=== PATIENT | male | born 1970 | race African-American/Black ===

== ENCOUNTER 2017-06-07 15:47 | Inpatient (IN) | payer BC ==
[~2017-06-07] VITALS: Ht 170.2 cm; Wt 120.3 kg
[2017-06-07 17:20] LABS: BASOPHILS % (AUTO) 0.5 % (0.0-5.0); EOSINOPHILS % (AUTO) 0.2 % (0.0-8.0); HEMATOCRIT 47.2 % (42-54); LYMPHOCYTES % (AUTO) 12.5 % (21.0-51.0); MEAN CORPUSCULAR HGB CONC 33.6 g/dL (32.0-36.0); MEAN CORPUSCULAR VOLUME 89.2 fL (79-99); MONOCYTES % (AUTO) 2.1 % (3.0-13.0); NEUTROPHILS % (AUTO) 84.7 % (40.0-77.0); PLATELET COUNT (AUTO) 174 K/uL (130-400); RED BLOOD CELL COUNT(AUTO) 5.29 MIL/uL (4.50-6.20); RED CELL DISTRIBUTION WIDTH 13.4 % (11.0-15.5); WHITE BLOOD COUNT (AUTO) 6.6 K/uL (4.8-10.8)
[2017-06-07 17:27] LABS: CREATININE 1.2 mg/dL (0.5-1.5)
[2017-06-07 17:32] LABS: ALBUMIN 3.7 g/dL (3.5-5.0); BILIRUBIN,TOTAL 0.7 mg/dL (0.2-1.0)
[2017-06-07] MEDS ORDERED: SODIUM CHLORIDE 0.9% 1000ML 1,000 ML IV ONE (17:57)
[2017-06-07] MEDS ORDERED: ONDANSETRON HCL MDV 20ML 2 MG/ML VIAL ONE (17:57)
[2017-06-07] MEDS ORDERED: DIAZEPAM 5 MG TABLET ONE (17:57)
[2017-06-07 18:10] LABS: PARTIAL THROMBOPLASTIN TIME 24.5 SEC (26.3-35.5); PROTHROMBIN TIME 10.5 SEC (9.6-11.6)
[2017-06-07 18:24] LABS: CREATINE KINASE MB < 0.5 ng/mL (0.5-3.6); CREATINE KINASE, TOTAL 95 U/L (21-232)
[2017-06-07] MEDS ORDERED: ASPIRIN 325 MG TABLET ONE (20:03)
[2017-06-07] MEDS ORDERED: FAMOTIDINE 20MG TAB 20 MG TAB ONE (20:03)
[2017-06-07] MEDS ORDERED: MECLIZINE HCL 25 MG TABLET ONE (20:18)
[2017-06-07] MEDS ORDERED: HYDRALAZINE HCL 20 MG/ML VIAL ONE (20:18)
[2017-06-07] MEDS ORDERED: KETOROLAC TROMETHAMINE 30MG/ML ONE (20:18)
[2017-06-07] MEDS ORDERED: ACETAMINOPHEN 325 MG TAB ONE (20:19)
[2017-06-07] MEDS ORDERED: SODIUM CHLORIDE 0.9% 1000ML 1,000 ML IV SCH (22:37)
[2017-06-07] MEDS ORDERED: ONDANSETRON HCL 4 MG/2 ML VIAL IV PRN (22:45)
[2017-06-07] MEDS ORDERED: ACETAMINOPHEN-CODEINE 300/30MG TAB PO PRN (22:45)
[2017-06-07] MEDS ORDERED: ACETAMINOPHEN 325 MG TAB PO PRN (22:45)
[2017-06-08] VITALS (10 sets, daily range): BP systolic 143–173; BP diastolic 53–84
[2017-06-08] MEDS ORDERED: SODIUM CHLORIDE 0.9% 1000ML 1,000 ML IV ONE (00:33)
[2017-06-08] MEDS ORDERED: ACETAMINOPHEN-CODEINE 300/30MG TAB ONE (00:34)
[2017-06-08] MEDS ORDERED: KETOROLAC TROMETHAMINE 30MG/ML ONE ×2 (03:02→08:54)
[2017-06-08] MEDS ORDERED: ASPIRIN 325 MG TABLET ONE (08:10)
[2017-06-08] MEDS ORDERED: FAMOTIDINE 20MG TAB 20 MG TAB ONE (08:54)
[2017-06-08] MEDS: FAMOTIDINE 20MG TAB 20 MG TAB PO SCH ×2 (09:00→20:05)
[2017-06-08] MEDS ORDERED: ASPIRIN 325 MG TABLET PO SCH (09:00)
[2017-06-08] MEDS ORDERED: CLOPIDOGREL BISULFATE 75 MG TAB ONE (11:55)
[2017-06-08] MEDS ORDERED: BUTALB/ACETAMINOPHEN/CAFFEINE 1 EACH TABLET PO ONE (12:08)
[2017-06-08] MEDS ORDERED: DEXTROSE 5 % AND 0.9 % NACL 1,000 ML IV SCH (13:45)
[2017-06-08] MEDS: KETOROLAC TROMETHAMINE 30MG/ML IV PRN ×2 (14:34→20:50)
[2017-06-08 15:50] LABS: AMPHET/METH SCREEN,URINE NEGATIVE (NEGATIVE); BARBITURATE SCREEN, URINE POSITIVE (NEGATIVE); BENZODIAZEPINES SCREEN,URINE POSITIVE (NEGATIVE); CANNABINOID SCREEN,URINE NEGATIVE (NEGATIVE); COCAINE SCREEN,URINE NEGATIVE (NEGATIVE); OPIATE SCREEN,URINE POSITIVE (NEGATIVE); PHENCYCLIDINE SCREEN,URINE NEGATIVE (NEGATIVE)
[2017-06-08] MEDS ORDERED: ONDANSETRON HCL MDV 20ML 2 MG/ML VIAL IVP ONE (19:14)
[2017-06-08] MEDS: MORPHINE SULFATE 2 MG/ML 1ML SYG IVP PRN (19:21)
[2017-06-08] MEDS: ONDANSETRON HCL MDV 20ML 2 MG/ML VIAL IVP PRN (19:21)
[2017-06-08] MEDS: ACETAMINOPHEN 325 MG TAB PO PRN (20:09)
[2017-06-08] MEDS ORDERED: MECLIZINE HCL 25 MG TABLET PO SCH (21:00)
[2017-06-08] MEDS: HYDRALAZINE HCL 20 MG/ML VIAL IV PRN (22:02)
[2017-06-08] MEDS: BUTALB/ACETAMINOPHEN/CAFFEINE 1 EACH TABLET PO PRN (23:01)
[2017-06-08] MEDS: MECLIZINE HCL 25 MG TABLET PO PRN (23:01)
[2017-06-09] VITALS (25 sets, daily range): BP systolic 132–181; BP diastolic 64–105
[2017-06-09] MEDS: MORPHINE SULFATE 2 MG/ML 1ML SYG IVP PRN ×3 (00:03→19:27)
[2017-06-09] MEDS: KETOROLAC TROMETHAMINE 30MG/ML IV PRN ×3 (02:54→18:37)
[2017-06-09] MEDS: HYDRALAZINE HCL 20 MG/ML VIAL IV PRN ×3 (03:06→18:44)
[2017-06-09 03:57] LABS: HEMATOCRIT 48.6 % (42-54); MEAN CORPUSCULAR HEMOGLOBIN 30.1 pg (27.0-33.0); MEAN CORPUSCULAR VOLUME 88.5 fL (79-99); NUCLEATED RED BLOOD CELLS 0.1 % (0.0-0.19); PLATELET COUNT (AUTO) 205 K/uL (130-400); RED BLOOD CELL COUNT(AUTO) 5.49 MIL/uL (4.50-6.20); RED CELL DISTRIBUTION WIDTH 13.4 % (11.0-15.5); WHITE BLOOD COUNT (AUTO) 8.3 K/uL (4.8-10.8)
[2017-06-09] MEDS: HYDROCODONE/ACETAMINOPHEN 5/325 MG TAB PO PRN ×2 (04:01→20:58)
[2017-06-09 04:12] LABS: CREATININE 1.1 mg/dL (0.5-1.5); POTASSIUM 3.3 mmol/L (3.5-5.1)
[2017-06-09] MEDS: ONDANSETRON HCL MDV 20ML 2 MG/ML VIAL IVP PRN (05:34)
[2017-06-09] MEDS: BUTALB/ACETAMINOPHEN/CAFFEINE 1 EACH TABLET PO PRN ×2 (06:26→20:35)
[2017-06-09] MEDS: MECLIZINE HCL 25 MG TABLET PO PRN ×2 (06:26→20:35)
[2017-06-09] MEDS: CLOPIDOGREL BISULFATE 75 MG TAB PO SCH (10:11)
[2017-06-09] MEDS: PANTOPRAZOLE SODIUM 40 MG TABLET.DR PO SCH (10:11)
[2017-06-09] MEDS: ASPIRIN 81MG TAB.CHEW PO SCH (10:11)
[2017-06-10] VITALS (18 sets, daily range): BP systolic 130–200; BP diastolic 65–118
[2017-06-10] MEDS: KETOROLAC TROMETHAMINE 30MG/ML IV PRN ×3 (00:18→14:15)
[2017-06-10] MEDS: HYDRALAZINE HCL 20 MG/ML VIAL IV PRN ×3 (03:11→20:26)
[2017-06-10] MEDS: BUTALB/ACETAMINOPHEN/CAFFEINE 1 EACH TABLET PO PRN (04:12)
[2017-06-10] MEDS: HYDROCODONE/ACETAMINOPHEN 5/325 MG TAB PO PRN ×2 (04:12→11:10)
[2017-06-10] MEDS: CLOPIDOGREL BISULFATE 75 MG TAB PO SCH (09:11)
[2017-06-10] MEDS: ASPIRIN 81MG TAB.CHEW PO SCH (09:11)
[2017-06-10] MEDS: PANTOPRAZOLE SODIUM 40 MG TABLET.DR PO SCH (09:11)
[2017-06-10] MEDS ORDERED: MECLIZINE HCL 25 MG TABLET PO PRN (14:00)
[2017-06-10] MEDS: MECLIZINE HCL 25 MG TABLET PO PRN (14:16)
[2017-06-10] MEDS: MORPHINE SULFATE 2 MG/ML 1ML SYG IVP PRN (14:44)
[2017-06-10] MEDS: MECLIZINE HCL 25 MG TABLET PO SCH ×2 (15:00→22:40)
[2017-06-10] MEDS ORDERED: LOSARTAN 50 MG TABLET PO SCH (15:00)
[2017-06-10] MEDS ORDERED: LIDOCAINE HCL-MPF 1% 2ML VIAL IVP PRN (15:00)
[2017-06-10] MEDS ORDERED: POTASSIUM CHLORIDE 10% ELIXIR 20 MEQ/15 ML UDCUP PO PRN (15:00)
[2017-06-10] MEDS ORDERED: POTASSIUM CHLORIDE 20MEQ/100ML 100 ML IV PRN (15:00)
[2017-06-10] MEDS: POTASSIUM CHLORIDE 20 MEQ ERTAB PO PRN ×2 (15:08→18:46)
[2017-06-10 15:31] LABS: CREATININE 1.1 mg/dL (0.5-1.5); POTASSIUM 3.4 mmol/L (3.5-5.1)
[2017-06-11 03:00] VITALS: BP 160/93
[2017-06-11] MEDS: HYDRALAZINE HCL 20 MG/ML VIAL IV PRN (03:06)
[2017-06-11] MEDS: ACETAMINOPHEN 325 MG TAB PO PRN (03:09)
[2017-06-11] MEDS: MORPHINE SULFATE 2 MG/ML 1ML SYG IVP PRN (03:50)
[2017-06-11 04:03] LABS: HEMATOCRIT 49.6 % (42-54); MEAN CORPUSCULAR HEMOGLOBIN 30.4 pg (27.0-33.0); MEAN CORPUSCULAR HGB CONC 34.5 g/dL (32.0-36.0); NUCLEATED RED BLOOD CELLS 0.1 % (0.0-0.19); PLATELET COUNT (AUTO) 192 K/uL (130-400); RED BLOOD CELL COUNT(AUTO) 5.63 MIL/uL (4.50-6.20); RED CELL DISTRIBUTION WIDTH 13.2 % (11.0-15.5); WHITE BLOOD COUNT (AUTO) 8.3 K/uL (4.8-10.8)
[2017-06-11 04:18] LABS: CREATININE 1.3 mg/dL (0.5-1.5); MAGNESIUM 1.8 mg/dL (1.80-2.40); PHOSPHORUS 3.7 mg/dL (2.5-4.9); POTASSIUM 3.5 mmol/L (3.5-5.1)
[2017-06-11 08:00] VITALS: BP 159/81
[2017-06-11] MEDS: MECLIZINE HCL 25 MG TABLET PO SCH ×2 (08:00→15:52)
[2017-06-11] MEDS ORDERED: DIAZEPAM 2 MG TAB PO PRN (08:15)
[2017-06-11] MEDS ORDERED: MORPHINE SULFATE 2 MG/ML 1ML SYG IVP PRN (08:15)
[2017-06-11] MEDS ORDERED: MAGNESIUM 2GM PREMIX 50ML 50 ML IV SCH (08:15)
[2017-06-11 11:45] VITALS: BP 139/81
[2017-06-11] MEDS: PANTOPRAZOLE SODIUM 40 MG TABLET.DR PO SCH (12:24)
[2017-06-11] MEDS: CLOPIDOGREL BISULFATE 75 MG TAB PO SCH (12:24)
[2017-06-11] MEDS: ASPIRIN 81MG TAB.CHEW PO SCH (12:24)
[2017-06-11] MEDS: ENOXAPARIN SODIUM 40 MG/0.4 ML SYRINGE SQ SCH (12:25)
[2017-06-11] MEDS: HYDROCHLOROTHIAZIDE 25 MG TABLET PO SCH (12:30)
[2017-06-11] MEDS: LOSARTAN 50 MG TABLET PO SCH (12:30)
[2017-06-11] MEDS: TRAMADOL HCL 50 MG TABLET PO PRN (16:00)
[2017-06-11 16:17] VITALS: BP 148/96
[2017-06-11 19:00] VITALS: BP 154/93
[2017-06-11 23:00] VITALS: BP 160/95
[2017-06-12] MEDS: LOSARTAN 50 MG TABLET PO SCH ×2 (00:01→08:44)
[2017-06-12 03:00] VITALS: BP 117/69
[2017-06-12 06:28] LABS: HEMATOCRIT 50.7 % (42-54); MEAN CORPUSCULAR HEMOGLOBIN 30.3 pg (27.0-33.0); MEAN CORPUSCULAR VOLUME 89.2 fL (79-99); NUCLEATED RED BLOOD CELLS 0.1 % (0.0-0.19); PLATELET COUNT (AUTO) 213 K/uL (130-400); RED BLOOD CELL COUNT(AUTO) 5.68 MIL/uL (4.50-6.20); WHITE BLOOD COUNT (AUTO) 7.2 K/uL (4.8-10.8)
[2017-06-12 06:37] LABS: CREATININE 1.2 mg/dL (0.5-1.5); MAGNESIUM 1.9 mg/dL (1.80-2.40); POTASSIUM 3.4 mmol/L (3.5-5.1)
[2017-06-12] MEDS: MECLIZINE HCL 25 MG TABLET PO SCH ×3 (07:14→15:15)
[2017-06-12 08:00] VITALS: BP 130/78
[2017-06-12] MEDS: ASPIRIN 81MG TAB.CHEW PO SCH (08:43)
[2017-06-12] MEDS: HYDROCHLOROTHIAZIDE 25 MG TABLET PO SCH (08:43)
[2017-06-12] MEDS: CLOPIDOGREL BISULFATE 75 MG TAB PO SCH (08:43)
[2017-06-12] MEDS: PANTOPRAZOLE SODIUM 40 MG TABLET.DR PO SCH (08:44)
[2017-06-12] MEDS: ENOXAPARIN SODIUM 40 MG/0.4 ML SYRINGE SQ SCH (08:46)
[2017-06-12] MEDS: TRAMADOL HCL 50 MG TABLET PO PRN (09:44)
[2017-06-12 11:00] VITALS: BP 125/85
[2017-06-12] MEDS: POTASSIUM CHLORIDE 20 MEQ ERTAB PO PRN (15:43)
[2017-06-12 16:00] VITALS: BP 129/78
== END 2017-06-12 18:32 | DRG 64 ==
LOC: EDH 15:47 → EDHIP 19:08 → OBSVTOIN 19:08 → 2CH 06-08 12:47 → 3CH 06-10 18:38
PROVIDERS: ADMIT Internal Medicine; ATTEND Internal Medicine
DX: I63.532 Cerebral infarction due to unspecified occlusion or stenosis of left posterior cerebral artery (principal); I77.74 Dissection of vertebral artery; Z68.41 Body mass index [BMI] 40.0-44.9, adult; I10 Essential (primary) hypertension; E66.01 Morbid (severe) obesity due to excess calories; G47.33 Obstructive sleep apnea (adult) (pediatric); I65.02 Occlusion and stenosis of left vertebral artery; Z79.02 Long term (current) use of antithrombotics/antiplatelets; Z79.82 Long term (current) use of aspirin; Z91.19 Patient's noncompliance with other medical treatment and regimen
CPT/HCPCS: 36415; 70450; 70547; 70551; 72125; 80048; 80053; 80305; 82550; 82553; 83735; 84100; 84484; 85025; 85027; 85610; 85730; 92610; 93005; 93306; 97039; J0360; J1650; J1885; J7030; J7042

== ENCOUNTER 2019-05-25 06:50 | Emergency (ER) | payer BC ==
[2019-05-25] MEDS ORDERED: SODIUM CHLORIDE 0.9% 1000ML 1,000 ML IV ONE ×2 (07:14→09:35)
[2019-05-25] MEDS ORDERED: KETOROLAC TROMETHAMINE 30MG/ML ONE (07:16)
[2019-05-25] MEDS ORDERED: ONDANSETRON HCL 4 MG/2 ML VIAL ONE ×2 (07:16→09:34)
[2019-05-25 07:21] LABS: BASOPHILS % (AUTO) 0.3 % (0.0-5.0); HEMATOCRIT 43.3 % (42-54); MEAN CORPUSCULAR HEMOGLOBIN 28.8 pg (27.0-33.0); MEAN CORPUSCULAR HGB CONC 32.8 g/dL (32.0-36.0); MEAN CORPUSCULAR VOLUME 87.8 fL (79-99); NEUTROPHILS % (AUTO) 31.4 % (40.0-77.0); PLATELET COUNT (AUTO) 190 K/uL (130-400); RED BLOOD CELL COUNT(AUTO) 4.93 MIL/uL (4.50-6.20); RED CELL DISTRIBUTION WIDTH 11.9 % (11.0-15.5); WHITE BLOOD COUNT (AUTO) 6.9 K/uL (4.8-10.8)
[2019-05-25 07:28] LABS: CREATININE 1.2 mg/dL (0.5-1.5); POTASSIUM 3.8 mmol/L (3.5-5.1)
[2019-05-25 07:31] LABS: INR 0.98 (0.85-1.15); PARTIAL THROMBOPLASTIN TIME 22.2 SEC (26.3-35.5); PROTHROMBIN TIME 10.3 SEC (9.6-11.6)
[2019-05-25 07:34] LABS: ALBUMIN 3.7 g/dL (3.5-5.0); BILIRUBIN,TOTAL 0.5 mg/dL (0.2-1.0); TOTAL PROTEIN, SERUM 7.4 g/dL (6.0-8.3)
[2019-05-25 07:52] LABS: APPEARANCE,URINE Clear (CLEAR); BILIRUBIN,URINE Negative (NEGATIVE); COLOR,URINE Yellow (YELLOW); GLUCOSE, URINE (UA) Negative (NEGATIVE); KETONES,URINE Negative (NEGATIVE); LEUKOCYTE ESTERASE ,URINE Negative (NEGATIVE); NITRATE,URINE Negative (NEGATIVE); OCCULT BLOOD,URINE Large (NEGATIVE); PROTEIN,URINE Negative (NEGATIVE)
[2019-05-25] MEDS ORDERED: TRAMADOL HCL 50 MG TABLET ONE (08:22)
[2019-05-25 08:36] LABS: BACTERIA,URINE Rare /HPF (None Seen); MUCUS,URINE Rare LPF (None Seen); RBC,URINE 51-100 /HPF (0-1); SQUAMOUS EPITHELIAL CELL,UR Rare /HPF (0-2); WBC,URINE 0-1 /HPF (0-1)
[2019-05-25] MEDS ORDERED: TAMSULOSIN HCL 0.4 MG CAP.ER.24H ONE (09:35)
== END 2019-05-25 11:18 | disposition home or self-care (01) ==
LOC: EDH 06:50
DX: N20.0 Calculus of kidney (principal); N13.39 Other hydronephrosis; R03.0 Elevated blood-pressure reading, without diagnosis of hypertension
CPT/HCPCS: 36415; 71045; 74176; 80053; 81001; 82150; 82550; 83690; 84484; 85025; 85610; 85730; 93005; 96361 ×2; 96374; 96375; 96376; 99285; J1885; J2405 ×2; J7030 ×2

== ENCOUNTER 2023-07-20 14:24 | Emergency (ER) | payer BC ==
[~2023-07-20] VITALS: Ht 170.2 cm; Wt 131.5 kg
[2023-07-20 14:44] VITALS: BP 107/100; PULSE 70; RESP 16; O2SAT 98
[2023-07-20] MEDS ORDERED: DIPH,PERTUSS(ACELL),TET VAC/PF 0.5 ML VIAL IM ONE (15:30)
[2023-07-20] MEDS: TETANUS/DIPHTHERIA TOXOID [ADULT] 0.5 ML VIAL IM ONE (15:34)
[2023-07-20] MEDS: LIDOCAINE HCL 1% 20 ML VIAL INJ SCH (15:34)
[2023-07-20] MEDS ORDERED: CEPH500B PO (17:00)
[2023-07-20] MEDS ORDERED: MUPI22OI2 TP (17:00)
[2023-07-20] MEDS ORDERED: IBUP-2077 PO (17:00)
== END 2023-07-20 17:07 | disposition home or self-care (01) ==
LOC: EDH 14:24
DX: S51.811A Laceration without foreign body of right forearm, initial encounter (principal); I10 Essential (primary) hypertension; E78.00 Pure hypercholesterolemia, unspecified; Z79.899 Other long term (current) drug therapy; W25.XXXA Contact with sharp glass, initial encounter; Y93.89 Activity, other specified; Y92.89 Other specified places as the place of occurrence of the external cause; Y99.8 Other external cause status
CPT/HCPCS: 12002; 73090; 90471; 90714